=== PATIENT | male | born 1960 | race Hispanic/Latino ===

== ENCOUNTER 2025-05-25 18:24 | Emergency (ER) | payer SELFPAY ==
[2025-05-25] MEDS ORDERED: NOREPINEPHRINE 8 MG/250 ML-D5W 250 ML ONE (18:37)
[2025-05-25] MEDS ORDERED: Rocuronium Bromide 10 MG/ML (10ML VIAL) ONE (19:06)
[2025-05-25] MEDS ORDERED: Calcium Chloride 1 GM/10 ML Abboject SYRINGE ONE (19:06)
[2025-05-25 22:26] LABS: Hep C Index 0.08 S/CO (0-0.79)
[2025-05-25 22:55] LABS: Hep B Surf Ag NONREACTIVE S/CO (NonReactive); Hep C IgG Ab NONREACTIVE S/CO (NonReactive)
[2025-05-25 23:24] LABS: HIV (1/2) Antibody/Antigen NONREACTIVE (NonReactive); HIV 1/2 INDEX 0.05 S/CO (<1.00)
== END 2025-05-25 19:00 | disposition admitted as inpatient to this hospital (09) ==
LOC: ERS 18:24 → EDBD 18:24 → ERS 19:00
PROC: 0DJ60ZZ Inspection of Stomach, Open Approach (ICD-10-PCS; principal; 2025-05-25)
DX: S36.113A Laceration of liver, unspecified degree, initial encounter (principal); S22.43XA Multiple fractures of ribs, bilateral, initial encounter for closed fracture; S09.90XA Unspecified injury of head, initial encounter; V89.2XXA Person injured in unspecified motor-vehicle accident, traffic, initial encounter
CPT/HCPCS: 32551; 36430; 71045; 74018; 86803; 86850; 86900; 86901; 87340; 87389; 92950; 94002; 96374; 96375; A4314; G0390; J0166; P9016; P9048; P9059